=== PATIENT | female | born 1930 | race Caucasian/White ===

== ENCOUNTER 2017-03-25 11:02 | Inpatient (IN) | payer MEDICARE, BC ==
[~2017-03-25] VITALS: Ht 172.7 cm; Wt 79.0 kg
--- NOTE | 2017-03-26 08:19 | HP ---
ADMIT: 03/25/2017 RM/LOC: 314 [facility] MR#: [id number] [id number] [address] JUDI [place]UR[place] [address] History and Physical SEX: F AGE: 86 : 1930 DATE OF SERVICE: HISTORY OF PRESENT ILLNESS: Judi is a nice 86-year-old patient of mine, who has a history of dementia, who has recently been living at [facility] secondary to inability to care for self at home, who presented with approximately a five-day illness, initially started with cough today with development of persistent fever with an episode of diarrhea. She was brought to the emergency room for continued evaluation and care. Sodium is 142, potassium 3.2, BUN and creatinine 12 and 0.6. Blood sugar 123. Cardiac enzymes negative. White count 13,000, hemoglobin 12.8, platelet count 123,000. UA showed 1+ pus, 1+ protein, 1+, leukocytes, wbc 64, her phosphorus was low. She, in the ER, was given fluid volumes as well as had cultures of urine and blood. She also had chest x-ray, which showed interstitial prominence. She at this time is admitted for further evaluation and care. PAST MEDICAL HISTORY: Includes history of hypertension, progressive dementia, and depression. CURRENT MEDICATIONS: 1. Amlodipine 5 mg daily. 2. Cranberry 400 mg daily. 3. Aspirin 81 mg daily. 4. Lexapro 20 mg daily. 5. Levothyroxine 25 mcg daily. 6. Namenda 10 mg b.i.d.. 7. Metoprolol 50 mg daily. 8. Multivitamin. 9. PreserVision. 10.Calcium. 11.Tekturna 300 mg daily. 12.Acetaminophen. FAMILY HISTORY: Noncontributory. SOCIAL HISTORY: She currently lives at a local assisted living. No tobacco or alcohol. REVIEW OF SYSTEMS: She is really unable to give one except for HPI. PHYSICAL EXAMINATION: GENERAL: She is alert, confused. Short-term memory appropriate, knows who I am. She has a dry cough. HEENT: Normal. ADMIT: 03/25/2017 RM/LOC: 314 [facility] MR#: [id number] [address] [place] [address] History and Physical SEX: F AGE: 86 : 1930 LUNGS: Otherwise, her lungs were clear but diminished to auscultation. ABDOMEN: Soft, nontender, nondistended. EXTREMITIES: No evidence of edema. ASSESSMENT AND PLAN: Admission of an 86-year-old, white female with sepsis question whether it is secondary to a pulmonary process with interstitial pneumonia or a urinary tract infection. We will follow fluid volume resuscitate, give her IV Levophed for assistance in blood pressure management. Hold all of her home medications at this time. Lovenox for DVT prophylaxis. Placed a Bowden catheter for accurate I and O. Start with clear liquid sips and then advanced home as tolerated. We will continue to follow closely. As per her family, she is a DNR/DNI status. Flower Rosales MD/ sandra JOB #: [id number] CC: Flower Rosales, Attending Physician Flower Rosales, Family Physician
--- NOTE | 2017-03-28 07:09 | CO ---
ADMIT: 03/25/2017 RM/LOC: 314 [facility] MR#: [id number] [address] [address] [place] [address] Consultation SEX: F AGE: 86 : 1930 DATE OF CONSULTATION: 03/26/2017 ATTENDING PHYSICIAN: Flower Rosales CONSULTING PHYSICIAN: Abdi Olivera MD REASON FOR CONSULTATION: Atrial fibrillation. HISTORY OF PRESENT ILLNESS: Judi is a pleasant 86-year-old female, who has a history of nonobstructive coronary artery disease by cath in 2008 who presented with fever, hypotension, and sepsis. She used to live in [place], but now is living at [facility] here in [place] secondary to inability to care for self at home. Her symptoms have been going on for about 5 days. She had a cough. She had a fever and some diarrhea. She was also having some dysuria. She was admitted yesterday. She was placed on pressors for blood pressure support and then converted into atrial fibrillation. She has been rapid and having runs of nonsustained ventricular tachycardia. She wants aggressive medical therapy, but does not want anything further than any further ventilation or blood pressure support. PAST MEDICAL HISTORY: 1. History of hypertension. 2. History of progressive dementia. 3. History of depression. 4. History of peripheral vascular disease in 2002. 5. History of hypothyroidism. 6. History of cataract surgery. 7. History of nonobstructive coronary disease by cath in 2008. ALLERGIES: TO SULFA. MEDICATIONS: She is on: 1. DuoNeb. 2. Lovenox 40 mg subcu daily. 3. Sliding scale insulin. 4. She is on epinephrine and Levophed. 5. She is on Zosyn 3.375 g IV every 12 hours. 6. Pepcid 20 mg IV b.i.d. SOCIAL HISTORY: She lives here in [facility]. She denies any tobacco or alcohol use. She is . She does drink coffee daily. She does not follow special diet. FAMILY HISTORY: Denies diabetes or cancer. She has a family history of heart disease and stroke at an older age in her family. REVIEW OF SYSTEMS: GENERAL: She has had fatigue and fever over the last 5 days. EYES: She has had cataract surgery. Denies any double vision or blurry ADMIT: 03/25/2017 RM/LOC: 314 [facility] MR#: [id number] [address] [place] [address] Consultation SEX: F AGE: 86 : 1930 vision. ENT: Denies hearing loss. No problems with her nose, mouth, or throat. PULMONARY: She has had a cough and she is short of breath. GI: She has had an episode of diarrhea. Denies any nausea or vomiting. : She does have some dysuria and a history of urinary tract infections. MUSCULOSKELETAL: She does have arthritis and joint pains. ENDOCRINE: She does have history of hypothyroidism on replacement. Denies diabetes. HEMATOLOGIC: Denies anemia or easy bruising or cancer. NEUROLOGIC: Denies any strokes or seizures. She does have history of dementia. PSYCHIATRIC: She has a history of anxiety that is controlled. All other systems reviewed and negative. PHYSICAL EXAMINATION: VITAL SIGNS: Blood pressure 71/53, pulse 138, temperature 98.8, and respirations 36, oxygen sat 92% on 2 L. GENERAL: She is tachypneic and in mild distress, but she is alert. HEENT: Normocephalic, atraumatic. Moist mucous membranes. NECK: Supple. There is no bruits auscultated. No lymphadenopathy. JVP appears normal. HEART: Irregularly irregular and tachycardic. LUNGS: She has distant breath sounds. No wheezes. ABDOMEN: Soft and nontender. EXTREMITIES: No cyanosis, clubbing, or edema. NEUROLOGIC: Cranial nerves II through XII intact. SKIN: No rashes. PSYCHIATRIC: She is alert. She is confused though. DIAGNOSTIC DATA: Potassium is 2.7, sodium 134, white blood cell count 24, magnesium is 1.6. IMPRESSION: 1. Sepsis. 2. Atrial fibrillation with rapid ventricular response. 3. Hypertension. 4. Nonsustained ventricular tachycardia. ADMIT: 03/25/2017 RM/LOC: 314 [facility] MR#: [id number] [address] [place] [address] Consultation SEX: F AGE: 86 : 1930 5. Dementia. RECOMMENDATIONS: She is flipped into atrial fibrillation with her sepsis and is quite rapid. I think this is contributing to her hypotension. She is on two pressors. She also has abnormal electrolytes with magnesium and potassium. They are being replaced. I would recommend that we try to start her on IV amiodarone along with IV digoxin. She will also do an echocardiogram when her heart rate slows down. She is obviously in critical condition and the family understands. She is DNR/DNI. They would like to continue medical therapy at this point, but did not want any escalation of care beyond that. We will follow along and amend our plan as her care progresses. Abdi Olivera MD/ sandra JOB #: [id number] CC: Flower Rosales, Attending Physician Flower Rosales, Family Physician
--- NOTE | 2017-03-28 12:41 | ER ---
ADMIT: 03/25/2017 RM/LOC: 314 [facility] MR#: [id number] [address] [address] [place] [address] Emergency Room Report SEX: F AGE: 86 : 1930 DATE: 03/25/2017 ADDENDUM: An 86-year-old demented white female, coming from assisted living, spiking fevers on and off for several days, kind of a raspy sound cough, otherwise negative. She has hypertension and hypothyroidism. She has a white count of 13.8. Chest x-ray, we do not see anything. Chemistry; her potassium is 3.2, her phosphate is low at 2.2, lactate of 1.8 with positive urine, infected at this time. At this time, she makes a sepsis screen because she continues to run low blood pressures. We have given her 30 mL/kg, still running low blood sugars, she has received 3 L. EKG is nothing acute. I spoke with Dr. Rosales, who is covering her, and given her Zosyn and vanc per protocol, and she will be admitted as a sepsis patient. CONDITION ON DISCHARGE: Serious, but stable. Vivek Davalos MD/ modl JOB #: [id number] CC: Flower Rosales MD, Attending Physician Flower Rosales MD, Family Physician
--- NOTE | 2017-04-08 07:48 | DS ---
ADMIT: 03/25/2017 RM/LOC: 314 [facility] MR#: [id number] [address] [address] [place] [address] General Discharge Summary SEX: F AGE: 86 : 1930 ADMISSION DATE: 03/25/2017 DISCHARGE DATE: 03/27/2017 DISCHARGE DIAGNOSES: 1. Sepsis felt to be secondary to urological source. 2. Pneumonia, atrial fibrillation with rapid rate. 3. Severe dementia. HOSPITAL COURSE: Mrs. Zurita is an 86-year-old white female, who has severe dementia, was admitted to [facility] with progressive decline, fever, and hypotension. She was initially seen and evaluated in the emergency room. Appropriate laboratory assessment was performed. Cultures were obtained. She had persistent hypotension, was placed in the intensive care unit with treatment with pressor. She did require two IV pressors. Her family made a decision at that time to back her care down to supportive care and comfort care, and she subsequently . Please see her body of her hospitalization in her chart. Flower Rosales MD/ sandra JOB #: [id number] CC: Flower Rosales MD, Attending Physician Flower Rosales MD, Family Physician
== END 2017-03-27 21:45 | disposition expired | DRG 871 ==
LOC: ER 11:02 → 3ICU 13:30
PROVIDERS: ADMIT Internal Medicine
PROC: 02HV33Z Insertion of Infusion Device into Superior Vena Cava, Percutaneous Approach (ICD-10-PCS; principal; 2017-03-25)
DX: A41.9 Sepsis, unspecified organism (principal); R65.21 Severe sepsis with septic shock; I47.2 Ventricular tachycardia; J18.9 Pneumonia, unspecified organism; N39.0 Urinary tract infection, site not specified; I48.91 Unspecified atrial fibrillation; F03.90 Unspecified dementia, unspecified severity, without behavioral disturbance, psychotic disturbance, mood disturbance, and anxiety; I73.9 Peripheral vascular disease, unspecified; Z51.5 Encounter for palliative care; E87.6 Hypokalemia; I25.10 Atherosclerotic heart disease of native coronary artery without angina pectoris; I10 Essential (primary) hypertension; F41.9 Anxiety disorder, unspecified; E03.9 Hypothyroidism, unspecified; F32.9 Major depressive disorder, single episode, unspecified; Z79.82 Long term (current) use of aspirin; Z66 Do not resuscitate